=== PATIENT | female | born 1995 | race Hispanic/Latino ===

== ENCOUNTER 2018-11-05 11:49 | Emergency (ER) | payer OTHER, MEDICAID ==
[~2018-11-05 11:49] MED LIST: PREN-196 PO
[2018-11-05 12:34] LABS: BASOPHILS % (AUTO) 0.1 % (0.0-5.0); HEMATOCRIT 38.1 % (36-48); LYMPHOCYTES % (AUTO) 10.6 % (21.0-51.0); MEAN CORPUSCULAR HEMOGLOBIN 28.3 pg (27.0-33.0); MEAN CORPUSCULAR HGB CONC 33.2 g/dL (32.0-36.0); MEAN CORPUSCULAR VOLUME 85.4 fL (79-99); MONOCYTES % (AUTO) 6.2 % (3.0-13.0); NEUTROPHILS % (AUTO) 82.1 % (40.0-77.0); PLATELET COUNT (AUTO) 262 K/uL (130-400); RED BLOOD CELL COUNT(AUTO) 4.47 MIL/uL (4.00-5.50); RED CELL DISTRIBUTION WIDTH 16.3 % (11.0-15.5); WHITE BLOOD COUNT (AUTO) 11.2 K/uL (4.8-10.8)
[2018-11-05 12:37] LABS: APPEARANCE,URINE Cloudy (CLEAR); BILIRUBIN,URINE Negative (NEGATIVE); COLOR,URINE Yellow (YELLOW); GLUCOSE, URINE (UA) Negative (NEGATIVE); KETONES,URINE Trace mg/dL (NEGATIVE); LEUKOCYTE ESTERASE ,URINE Moderate (NEGATIVE); NITRATE,URINE Negative (NEGATIVE); OCCULT BLOOD,URINE Negative (NEGATIVE); PH,URINE 8.5 (5.0-8.0); PROTEIN,URINE POS 1+ (NEGATIVE)
[2018-11-05 12:40] LABS: CREATININE 0.7 mg/dL (0.5-1.5); POTASSIUM 4.1 mmol/L (3.5-5.1)
[2018-11-05 12:51] LABS: BACTERIA,URINE Few /HPF (None Seen); MUCUS,URINE Many LPF (None Seen); RBC,URINE None Seen /HPF (0-1); WBC,URINE 0-1 /HPF (0-1)
[2018-11-05 12:52] LABS: SQUAMOUS EPITHELIAL CELL,UR Moderate /HPF (0-2)
[2018-11-05] MEDS ORDERED: TETANUS/DIPHTHERIA TOXOID [ADULT] 0.5 ML VIAL IM ONE (14:19)
[2018-11-05] MEDS ORDERED: OCTYL 2-CYANOACRYLATE 1 EACH TP ONE (14:20)
== END 2018-11-05 15:41 | disposition home or self-care (01) ==
LOC: EDH 11:49
DX: O9A.211 Injury, poisoning and certain other consequences of external causes complicating pregnancy, first trimester (principal); S01.111A Laceration without foreign body of right eyelid and periocular area, initial encounter; Z98.890 Other specified postprocedural states; Z3A.08 8 weeks gestation of pregnancy; W18.39XA Other fall on same level, initial encounter; Y93.89 Activity, other specified; Y92.098 Other place in other non-institutional residence as the place of occurrence of the external cause; Y99.8 Other external cause status
CPT/HCPCS: 12011; 36415; 80048; 81001; 82550; 84484; 84702; 85025; 90471; 90714; 93005

== ENCOUNTER 2019-03-28 12:01 | Observation (INO) | payer OTHER, MEDICAID ==
[2019-03-28 12:55] LABS: APPEARANCE,URINE Clear (CLEAR); BILIRUBIN,URINE Negative (NEGATIVE); COLOR,URINE Yellow (YELLOW); GLUCOSE, URINE (UA) Negative (NEGATIVE); KETONES,URINE 15 mg/dL (NEGATIVE); LEUKOCYTE ESTERASE ,URINE Large (NEGATIVE); NITRATE,URINE Negative (NEGATIVE); OCCULT BLOOD,URINE Negative (NEGATIVE); PH,URINE 7.5 (5.0-8.0); PROTEIN,URINE Negative (NEGATIVE); UROBILINOGEN,URINE 0.2 mg/dL (0.2-1.0)
[2019-03-28 13:00] LABS: BACTERIA,URINE Rare /HPF (None Seen); RBC,URINE 0-1 /HPF (0-1); SQUAMOUS EPITHELIAL CELL,UR Moderate /HPF (0-2)
[2019-03-28 13:19] LABS: MEAN CORPUSCULAR HEMOGLOBIN 27.7 pg (27.0-33.0); MEAN CORPUSCULAR HGB CONC 33.4 g/dL (32.0-36.0); MEAN CORPUSCULAR VOLUME 83.1 fL (79-99); NUCLEATED RED BLOOD CELLS 0.1 % (0.0-0.19); PLATELET COUNT (AUTO) 205 K/uL (130-400); RED BLOOD CELL COUNT(AUTO) 3.73 MIL/uL (4.00-5.50); RED CELL DISTRIBUTION WIDTH 15.3 % (11.0-15.5); WHITE BLOOD COUNT (AUTO) 10.4 K/uL (4.8-10.8)
== END 2019-03-28 15:30 | disposition home or self-care (01) ==
LOC: EDH 12:01 → LDH 12:19
PROVIDERS: ADMIT Obstetrics & Gynecology; ATTEND Obstetrics & Gynecology
DX: O26.893 Other specified pregnancy related conditions, third trimester (principal); R42 Dizziness and giddiness; R19.7 Diarrhea, unspecified; R53.1 Weakness; Z3A.29 29 weeks gestation of pregnancy
CPT/HCPCS: 36415; 81001; 85027; 99284; G0378 ×3; J7120; 96360

== ENCOUNTER 2019-04-13 13:56 | Observation (INO) | payer OTHER, MEDICAID ==
[~2019-04-13] VITALS: Ht 144.8 cm; Wt 57.6 kg
[2019-04-13 14:40] LABS: APPEARANCE,URINE SL CLOUDY (CLEAR); BILIRUBIN,URINE NEGATIVE (NEGATIVE); COLOR,URINE YELLOW (YELLOW); GLUCOSE, URINE (UA) NEGATIVE (NEGATIVE); KETONES,URINE NEGATIVE (NEGATIVE); LEUKOCYTE ESTERASE ,URINE SMALL (NEGATIVE); NITRATE,URINE NEGATIVE (NEGATIVE); OCCULT BLOOD,URINE NEGATIVE (NEGATIVE); PH,URINE 7.5 (5.0-8.0); PROTEIN,URINE NEGATIVE (NEGATIVE); UROBILINOGEN,URINE 0.2 mg/dL (0.2-1.0)
[2019-04-13 15:05] LABS: AMORPHOUS SEDIMENT,UR Few /LPF (None Seen); BACTERIA,URINE Few /HPF (None Seen); RBC,URINE 0-1 /HPF (0-1); WBC,URINE 0-1 /HPF (0-1)
[2019-04-13 15:06] LABS: SQUAMOUS EPITHELIAL CELL,UR Few /HPF (0-2); TRANSITIONAL EPI CELLS,URINE Rare /HPF (None Seen)
[2019-04-13] MEDS ORDERED: PANTOPRAZOLE SODIUM 40 MG TABLET.DR PO SCH (15:54)
== END 2019-04-13 17:00 | disposition home or self-care (01) ==
LOC: EDH 13:56 → LDH 14:19
PROVIDERS: ADMIT Obstetrics & Gynecology; ATTEND Obstetrics & Gynecology
DX: O26.893 Other specified pregnancy related conditions, third trimester (principal); R10.13 Epigastric pain; Z3A.30 30 weeks gestation of pregnancy
CPT/HCPCS: 81001; 99284; G0378 ×3

== ENCOUNTER 2019-06-05 11:00 | Inpatient (IN) | payer OTHER, MEDICAID ==
[~2019-06-05] VITALS: Ht 144.8 cm; Wt 60.3 kg
[2019-06-05 11:50] LABS: HEMATOCRIT 34.8 % (36-48); MEAN CORPUSCULAR HEMOGLOBIN 25.1 pg (27.0-33.0); MEAN CORPUSCULAR HGB CONC 32.1 g/dL (32.0-36.0); MEAN CORPUSCULAR VOLUME 78.2 fL (79-99); PLATELET COUNT (AUTO) 226 K/uL (130-400); RED BLOOD CELL COUNT(AUTO) 4.46 MIL/uL (4.00-5.50); RED CELL DISTRIBUTION WIDTH 17.9 % (11.0-15.5); WHITE BLOOD COUNT (AUTO) 7.8 K/uL (4.8-10.8)
[2019-06-06 08:12] LABS: HEPATITIS Bs ANTIGEN SCREEN P Negative (Negative)
[2019-06-07] MEDS ORDERED: LACTATED RINGERS 1000ML 1,000 ML IV ONE (09:04)
[2019-06-07] MEDS ORDERED: CEFAZOLIN SODIUM 1 GM VIAL ONE (09:04)
[2019-06-07] MEDS ORDERED: CEFAZOLIN SODIUM 1 GM VIAL IVP PRN (10:15)
[2019-06-07] MEDS ORDERED: LACTATED RINGERS 1000ML 1,000 ML IV SCH (10:15)
[2019-06-07] MEDS ORDERED: FENTANYL CITRATE PF 50 MCG/1 ML 2ML VIAL ONE (11:37)
[2019-06-07] MEDS ORDERED: DURAMORPH PF1 MG/ML 10ML AMP IV ONE (11:37)
[2019-06-07] MEDS ORDERED: CITRIC ACID/SODIUM CITRATE 30 ML UDCUP ONE (11:40)
[2019-06-07] MEDS ORDERED: CALDOLOR 800MG+NS 250ML 250 ML IV ONE (11:41)
[2019-06-07] MEDS ORDERED: CEFAZOLIN SODIUM 1 GM VIAL IVP ONE (11:45)
[2019-06-07] MEDS ORDERED: OXYTOCIN 10 UNIT/1ML 10ML VIAL ONE (12:10)
[2019-06-07] MEDS ORDERED: PHENYLEPHRINE HCL 10 MG/ML 1ML VIAL IV ONE (12:10)
[2019-06-07] MEDS ORDERED: ONDANSETRON HCL 4 MG/2 ML VIAL ONE (12:11)
[2019-06-07] MEDS ORDERED: MEPERIDINE-PF 75 MG/ML SYG IM PRN (13:00)
[2019-06-07] MEDS ORDERED: OXYTOCIN-LR 20 UNITS/1000 ML 1,000 ML IV PRN (13:00)
[2019-06-07] MEDS ORDERED: PROMETHAZINE HCL 25 MG/ML 1ML AMPULE IM PRN (13:00)
[2019-06-07] MEDS ORDERED: SODIUM CHLORIDE 0.9% 10 ML VIAL IVP PRN (13:00)
[2019-06-07 14:49] VITALS: BP 94/61
[2019-06-07] MEDS ORDERED: EPHEDRINE SULFATE 50 MG/ML AMPULE IVP PRN (15:45)
[2019-06-07] MEDS ORDERED: ONDANSETRON HCL 4 MG/2 ML VIAL IVP PRN (15:45)
[2019-06-07] MEDS ORDERED: DiphenhydrAMINE HCL 50 MG/ML VIAL IVP PRN (15:45)
[2019-06-07] MEDS ORDERED: NALOXONE HCL 0.4 MG/1 ML ML IVP PRN ×2 (15:45)
[2019-06-07] MEDS ORDERED: CALDOLOR 800MG+NS 250ML 250 ML IV PRN (15:45)
[2019-06-07 16:13] VITALS: BP 100/61
[2019-06-07 19:25] VITALS: BP 130/73
[2019-06-07] MEDS: DEXTROSE 5 %-0.45 % NACL 1,000 ML IV PRN (21:00)
[2019-06-07 23:22] VITALS: BP 98/56
[2019-06-08 03:28] VITALS: BP 96/57
[2019-06-08] MEDS: DEXTROSE 5 %-0.45 % NACL 1,000 ML IV PRN (04:13)
--- NOTE | 2019-06-08 06:30 | NUR ---
CERDA CATHETER DISCONTINUED, NEREIDA CARE DONE. PT. INST TO CALL FOR ASSIST BEFORE GETTING OUT OF BED, VERBALIZED UNDERSTANDING. Addendum: 06/08/19 at 0639 by JAYSHREE MURPHY RN RN Amended: Links added.
[2019-06-08 06:41] LABS: HEMATOCRIT 30.6 % (36-48); MEAN CORPUSCULAR HEMOGLOBIN 25.2 pg (27.0-33.0); MEAN CORPUSCULAR HGB CONC 31.5 g/dL (32.0-36.0); MEAN CORPUSCULAR VOLUME 79.9 fL (79-99); PLATELET COUNT (AUTO) 185 K/uL (130-400); RED BLOOD CELL COUNT(AUTO) 3.83 MIL/uL (4.00-5.50); RED CELL DISTRIBUTION WIDTH 18.1 % (11.0-15.5); WHITE BLOOD COUNT (AUTO) 9.9 K/uL (4.8-10.8)
[2019-06-08 07:23] VITALS: BP 101/69
--- NOTE | 2019-06-08 07:54 | NUR ---
DRESSING DRESSING LEFT INTACT. OOZING NOTED BEYOND PREVIOUSLY MARKED AREA. Addendum: 06/08/19 at 0942 by JUSTINO ALAS LVN LVN AREA MARKED WHERE OOZING IS NOTED.
[2019-06-08] MEDS ORDERED: ACETAMINOPHEN EXTRA STRENGTH 500 MG TABLET PO PRN (09:00)
[2019-06-08] MEDS ORDERED: BISACODYL 10 MG SUPP.RECT RC PRN (09:00)
[2019-06-08] MEDS ORDERED: ACETAMINOPHEN-CODEINE 300/30MG TAB PO PRN (09:00)
[2019-06-08] MEDS ORDERED: LANOLIN 30GM OINTMENT TP PRN (09:00)
--- NOTE | 2019-06-08 09:00 | NUR ---
SAFETY PATIENT CALLED NEEDING TO GO TO RESTROOM. ASSISTED PATIENT TO UP TO RESTROOM PATIENT REQUESTED PRIVACY. ADVISED PATIENT TO PULL ON EMERGENCY CORDS IF NEEDED.
[2019-06-08] MEDS: SIMETHICONE 80 MG TAB.CHEW PO PRN ×4 (09:22→20:44)
[2019-06-08] MEDS: DOCUSATE SODIUM 100 MG CAP PO SCH ×2 (09:22→20:44)
--- NOTE | 2019-06-08 09:42 | NUR ---
ACTIVITY PATIENT AMBULATING IN HALLWAY. NO COMPLAINTS OF PAIN OR DIZZINESS REPORTED.
--- NOTE | 2019-06-08 10:10 | NUR ---
MD DR. WOOTEN ROUNDING ON PATIENT. DRESSING REMOVED. NO OOZING NOTED.
--- NOTE | 2019-06-08 11:00 | NUR ---
DRESSING STERISTRIPS APPLIED TO RIGHT SIDE OF INCISION WITH 4X4 APPLIED OVER PER DR. WOOTEN
[2019-06-08 11:11] VITALS: BP 100/66
[2019-06-08] MEDS: DIPH,PERTUSS(ACELL),TET VAC/PF 0.5 ML VIAL IM SCH ×2 (12:43→20:52)
[2019-06-08 16:32] VITALS: BP 101/66
[2019-06-08] MEDS: IBUPROFEN 600 MG TABLET PO PRN (19:24)
[2019-06-08 19:30] VITALS: BP 120/69
[2019-06-08 23:42] VITALS: BP 99/61
[2019-06-09 03:58] VITALS: BP 102/60
--- NOTE | 2019-06-09 04:30 | NUR ---
PT GIVEN DUCOLAX SUPP RECTALLY AT 0411, UP IN BATHROOM AND PASSING GAS.
[2019-06-09 07:34] VITALS: BP 116/71
[2019-06-09] MEDS: DOCUSATE SODIUM 100 MG CAP PO SCH (10:07)
[2019-06-09] MEDS: IBUPROFEN 600 MG TABLET PO PRN (10:08)
[2019-06-09] MEDS: SIMETHICONE 80 MG TAB.CHEW PO PRN (10:08)
--- NOTE | 2019-06-09 11:15 | NUR ---
DR. WOOTEN CALLED AND ORDER OBTAINED FOR DISCHARGE. PATIENT REMAINS STABLE AND DENIES PAIN AT THIS TIME. SCRIPT IN CHART FOR PAIN MANAGEMENT AFTER DISCHARGE.
[2019-06-09 11:56] VITALS: BP 122/72
--- NOTE | 2019-06-09 12:25 | NUR ---
PATIENT WAS DISCHARGED TO HER MOTHER ION STABLE CONDITION. DENIES PAIN AT THIS TIME. PT TO FOLLOW UP IN ONE WEEK WITH DR. WOOTEN.
== END 2019-06-09 12:25 | disposition home or self-care (01) | DRG 785 ==
LOC: EDSTATUS 11:00 → LDH 06-07 08:44 → WSH 06-07 14:40
PROVIDERS: ADMIT Obstetrics & Gynecology; ATTEND Obstetrics & Gynecology
PROC: 10D00Z1 Extraction of Products of Conception, Low, Open Approach (ICD-10-PCS; 2019-06-07)
PROC: 3E0234Z Introduction of Serum, Toxoid and Vaccine into Muscle, Percutaneous Approach (ICD-10-PCS; 2019-06-07)
PROC: 0UB70ZZ Excision of Bilateral Fallopian Tubes, Open Approach (ICD-10-PCS; principal; 2019-06-07 12:00)
DX: O34.211 Maternal care for low transverse scar from previous cesarean delivery (principal); O99.824 Streptococcus B carrier state complicating childbirth; Z30.2 Encounter for sterilization; Z37.0 Single live birth; Z23 Encounter for immunization; Z3A.39 39 weeks gestation of pregnancy
CPT/HCPCS: 36415; 59510; 85027; 86592; 86850; 86900; 86901; 87340; 88302; 90715; A4344; A4450; A4606; G0378; J0690; J1741; J2274; J2370; J2405; J2590; J3010; J7120

== ENCOUNTER → 2022-10-13 | Outpatient (CLI) | payer OTHER ==
[2022-10-13 12:37] LABS: BASOPHILS % (AUTO) 0.2 % (0.0-5.0); EOSINOPHILS % (AUTO) 3.3 % (0.0-8.0); HEMATOCRIT 39.4 % (36-48); LYMPHOCYTES % (AUTO) 35.2 % (21.0-51.0); MEAN CORPUSCULAR HEMOGLOBIN 29.5 pg (27.0-33.0); MEAN CORPUSCULAR HGB CONC 34.3 g/dL (32.0-36.0); MONOCYTES % (AUTO) 5.6 % (3.0-13.0); NEUTROPHILS % (AUTO) 55.5 % (40.0-77.0); PLATELET COUNT (AUTO) 304 K/uL (130-400); RED BLOOD CELL COUNT(AUTO) 4.58 MIL/uL (4.00-5.50); WHITE BLOOD COUNT (AUTO) 8.4 K/uL (4.8-10.8)
[2022-10-13 13:31] LABS: ALANINE AMINOTRANSFERASE 15 U/L (12-78); ALBUMIN 3.8 g/dL (3.5-5.0); ASPARTATE AMINOTRANSFERASE 17 U/L (10-37); CARBON DIOXIDE 27 mmol/L (21-32); CHLORIDE 103 mmol/L (101-111); CREATININE 0.9 mg/dL (0.5-1.5); GLOMERULAR FILTR. RATE CALC 79 mL/min (>60); GLUCOSE,RANDOM 93 mg/dL (70-105); POTASSIUM 3.5 mmol/L (3.5-5.1); SODIUM SERUM 133 mmol/L (136-145); THYROID STIMULATING HORMONE 1.37 uIU/mL (0.36-3.74); TOTAL PROTEIN, SERUM 7.6 g/dL (6.0-8.3); UREA NITROGEN, BLOOD 13 mg/dL (7-18)
[2022-10-13 13:43] LABS: CRP QUANTITATIVE < 2.00 mg/L (0.00-9.0)
[2022-10-13 14:24] LABS: ERYTHROCYTE SEDIMENTATION RATE 12 MM/HR (0-20)
== END | disposition home or self-care (01) ==
LOC: LAB 11:55
PROVIDERS: ATTEND Internal Medicine
DX: R53.83 Other fatigue (principal); R41.840 Attention and concentration deficit
CPT/HCPCS: 36415; 80053; 84443; 85025; 85651; 86038; 86140; 86215; 86235

== ENCOUNTER → 2023-12-21 | Outpatient (CLI) | payer OTHER ==
[2023-12-21 11:28] LABS: BASOPHILS # (AUTO) 0.02 K/uL (0.00-0.20); BASOPHILS % (AUTO) 0.3 % (0.0-5.0); EOSINOPHILS # (AUTO) 0.19 K/uL (0.00-0.70); EOSINOPHILS % (AUTO) 2.8 % (0.0-8.0); HEMATOCRIT 41.2 % (36-48); IMMATURE GRANULOCYTE ABSOLUTE 0.03 K/uL (0-1); LYMPHOCYTES # (AUTO) 2.1 K/uL (1.0-4.8); LYMPHOCYTES % (AUTO) 30.8 % (21.0-51.0); MEAN CORPUSCULAR HEMOGLOBIN 29.8 pg (27.0-33.0); MEAN CORPUSCULAR HGB CONC 33.3 g/dL (32.0-36.0); MEAN CORPUSCULAR VOLUME 89.8 fL (79-99); MONOCYTES # (AUTO) 0.5 K/uL (0.1-1.0); MONOCYTES % (AUTO) 7.2 % (3.0-13.0); NEUTROPHILS # (AUTO) 3.9 K/uL (1.8-7.7); NEUTROPHILS % (AUTO) 58.5 % (40.0-77.0); PLATELET COUNT (AUTO) 332 K/uL (130-400); RED BLOOD CELL COUNT(AUTO) 4.59 MIL/uL (4.00-5.50); RED CELL DISTRIBUTION WIDTH 13.2 % (11.0-15.5); WHITE BLOOD COUNT (AUTO) 6.7 K/uL (4.8-10.8)
[2023-12-21 13:15] LABS: ALBUMIN 3.7 g/dL (3.5-5.0); BILIRUBIN,DIRECT 0.1 mg/dL (0.0-0.3); BILIRUBIN,TOTAL 0.3 mg/dL (0.2-1.0); CREATININE 0.8 mg/dL (0.5-1.5); THYROID STIMULATING HORMONE 0.7 uIU/mL (0.36-3.74); TOTAL PROTEIN, SERUM 7.3 g/dL (6.0-8.3)
== END | disposition home or self-care (01) ==
LOC: LAB 10:30
PROVIDERS: ATTEND Internal Medicine
DX: Z13.1 Encounter for screening for diabetes mellitus (principal); Z13.220 Encounter for screening for lipoid disorders; F90.9 Attention-deficit hyperactivity disorder, unspecified type; R53.83 Other fatigue
CPT/HCPCS: 36415; 80053; 80061; 80076; 80158; 82248; 82306; 82607; 84443; 85025

== ENCOUNTER → 2024-10-26 | Outpatient (CLI) | payer OTHER ==
[2024-10-26 10:00] LABS: HEMOGLOBIN A1C 5.6 % (4.0-6.0)
[2024-10-26 10:01] LABS: BASOPHILS # (AUTO) 0.03 K/uL (0.00-0.20); BASOPHILS % (AUTO) 0.4 % (0.0-5.0); EOSINOPHILS # (AUTO) 0.38 K/uL (0.00-0.70); EOSINOPHILS % (AUTO) 5.1 % (0.0-8.0); HEMATOCRIT 41.4 % (36-48); IMMATURE GRANULOCYTE ABSOLUTE 0.03 K/uL (0-1); LYMPHOCYTES # (AUTO) 2.1 K/uL (1.0-4.8); MEAN CORPUSCULAR HEMOGLOBIN 29.6 pg (27.0-33.0); MEAN CORPUSCULAR HGB CONC 32.1 g/dL (32.0-36.0); MONOCYTES # (AUTO) 0.4 K/uL (0.1-1.0); MONOCYTES % (AUTO) 5.7 % (3.0-13.0); NEUTROPHILS # (AUTO) 4.4 K/uL (1.8-7.7); NEUTROPHILS % (AUTO) 59.4 % (40.0-77.0); PLATELET COUNT (AUTO) 344 K/uL (130-400); RED CELL DISTRIBUTION WIDTH 13.2 % (11.0-15.5); WHITE BLOOD COUNT (AUTO) 7.4 K/uL (4.8-10.8)
[2024-10-26 10:36] LABS: ALBUMIN 3.8 g/dL (3.5-5.0); BILIRUBIN,DIRECT 0.1 mg/dL (0.0-0.3); BILIRUBIN,TOTAL 0.2 mg/dL (0.2-1.0); CREATININE 0.8 mg/dL (0.5-1.0); POTASSIUM 4.1 mmol/L (3.5-5.1); THYROID STIMULATING HORMONE 1.58 uIU/mL (0.36-3.74); TOTAL PROTEIN, SERUM 7.1 g/dL (6.0-8.3)
[2024-10-26 10:49] LABS: MAGNESIUM 1.9 mg/dL (1.80-2.40)
== END | disposition home or self-care (01) ==
LOC: LAB 08:48
PROVIDERS: ATTEND Internal Medicine
DX: Z13.220 Encounter for screening for lipoid disorders (principal); Z13.29 Encounter for screening for other suspected endocrine disorder; Z13.1 Encounter for screening for diabetes mellitus; J06.9 Acute upper respiratory infection, unspecified; R53.83 Other fatigue
CPT/HCPCS: 36415; 80053; 80061; 80076; 82043; 82306; 82570; 82607; 83036; 83735; 84443; 85025

== ENCOUNTER → 2025-07-20 | Outpatient (CLI) | payer OTHER ==
--- NOTE | 2025-07-20 11:09 | HMCIMG ---
SHOULDER COMP 2+VWS LT REASON: SHOULDER PAIN, LEFT TECHNIQUE: 2 views were obtained. FINDINGS: There is no evidence of fracture or dislocation. There is no joint effusion. The soft tissues appear unremarkable. There is no evidence of a radiopaque foreign body. The left AC joint appears to be normal. IMPRESSION: No acute findings.
--- NOTE | 2025-07-20 11:13 | HMCIMG ---
ELBOW 2VWS LT REASON: ELBOW PAIN, LEFT TECHNIQUE: 2 views were obtained. FINDINGS: There is no evidence of fracture or dislocation. There is no joint effusion. The soft tissues appear unremarkable. There is no evidence of a radiopaque foreign body. IMPRESSION: No acute findings.
== END | disposition home or self-care (01) ==
LOC: RAH 10:08
PROVIDERS: ATTEND Internal Medicine
DX: M77.12 Lateral epicondylitis, left elbow (principal); M25.512 Pain in left shoulder; M25.522 Pain in left elbow
CPT/HCPCS: 73030; 73070

== ENCOUNTER 2025-10-25 06:14 | Emergency (ER) | payer OTHER ==
[~2025-10-25] VITALS: Ht 144.8 cm; Wt 45.8 kg
[2025-10-25] MEDS: 0.9%NACL 1000ML 1,000 ML IV ONE (06:43)
--- NOTE | 2025-10-25 06:43 | ERN ---
ED Note History of Present Illness Stated Complaint: C/O "FEELING LIKE FAINTING" DIZZINESS, LOW B/P Chief Complaint: Dizzy/Light Headed Time Seen by MD: 06:36 Dictation: This is a 30-year-old female who presented to the emergency room complaining that she is feeling lightheaded and dizzy and running low blood pressure which started last night apparently she felt sick after she ate dinner and started having loose watery stools. Stated that she ate a hamburger but did could not finish it. No other family members have eaten the same food. No passing out although she feels weak. No nausea vomitings diarrhea hematemesis or melena. No history of any dysuria hematuria. No fever chills or rigors. No palpitations chest pain. No ear drainage, hearing loss or tinnitus. Temperature 96.4 pulse 93 respirations 20 blood pressure 100/61 with a pulse oximetry of 100% on room air Does give a history of anemia chronically Allergies: Coded Allergies: No Known Drug Allergies (Unverified Allergy, Unknown, 04/17/16) Home Meds Reported Medications Vit No.124/Iron/FA ( Vitamin Tablet) 1 Each Tablet, 1 EACH PO DAILY, TAB 04/19/16 Past Medical History Past Medical History: Anemia Surgical History: Family History: Negative Social History: Negative LMP: Oct 25, 2025 RN Note Reviewed/Agreed w/PFSH: Yes Review of System Dictation Constitutional: Negative for fever,chills, and weight loss Eyes: Negative for injury, pain,redness, and discharge ENT: Negative for injury,pain or swelling Cardiovascular: Negative for chest pain, palpitations, and edema positive for lightheadedness and dizziness, positive for low blood pressure Respiratory: Negative for shortness of breath, cough, and wheezing, Abdomen/GI: Negative for abdominal pain, nausea, vomiting, diarrhea, and constipation Back: Negative for injury and pain : Negative for injury, bleeding and discharge MS/Extremity: Negative for injury and deformity Skin: Negative for rash, and discoloration Neuro: Negative for headache, weakness, numbness, tingling, and seizure Psych: Negative for suicide ideation, homicidal ideation, and hallucinations Initial Vital Sign VS Vital Signs Date Time Temp Pulse Resp B/P (MAP) Pulse Ox O2 Delivery O2 Flow Rate FiO2 10/25/25 06:18 96.4 93 20 100/61 100 Room Air 10/25/25 06:35 0 21 Physical Exam Dictation General: awake, alert, NAD thin female Head/Face: Normocephalic, atraumatic Eyes: PERRL, EOMI, vision at baseline ENT: oral cavity clear, TMs clear, no signs of infection Neck: Trachea midline, supple, no nuchal rigidity Cardiovascular: RRR, normal S1/S2, No MRGs, no JVD Respiratory: CTAB, no respiratory distress, No rales or wheezes Abdomen: Soft, non-tender, non-distended, normal bowel sounds, no guarding or rebound. Skin: Warm, dry, normal turgor, no rash MS/Extremity: Pulses equal, no cyanosis, neurovascular intact, FROM Neuro: COAx4, GCS 15, strength 5/5, CN 2-12 intact, normal cerebellar exam, normal gait, Psych: Normal behavior, mood, and affect normal Extremities-trace edema without any palpable cords, Homans sign is negative Results (Laboratory/Radiology) Laboratory/Radiology Laboratory Tests Test 10/25/25 06:33 White Blood Count 11.4 K/uL (4.8-10.8) H Red Blood Count 4.45 MIL/uL (4.00-5.50) Hemoglobin 13.4 g/dL (12.0-16.0) Hematocrit 40.4 % (36-48) Mean Corpuscular Volume 90.8 fL (79-99) Mean Corpuscular Hemoglobin 30.1 pg (27.0-33.0) Mean Corpuscular Hemoglobin Concent 33.2 g/dL (32.0-36.0) Red Cell Distribution Width 12.9 % (11.0-15.5) Platelet Count 289 K/uL (130-400) Mean Platelet Volume 9.7 fL (7.5-10.5) Nucleated Red Blood Cells 0.0 % (0.0-0.19) Sodium Level 139 mmol/L (136-145) Potassium Level 4.0 mmol/L (3.5-5.1) Chloride Level 104 mmol/L (101-111) Carbon Dioxide Level 26 mmol/L (21-32) Blood Urea Nitrogen 16 mg/dL (7-18) Creatinine 0.8 mg/dL (0.5-1.0) Glomerular Filtration Rate Calc 101 mL/min (>90) Random Glucose 116 mg/dL (70-105) H Total Calcium 8.5 mg/dL (8.5-10.1) Serum Test, Qualitative NEGATIVE (NEGATIVE) Labs Reviewed?: Yes ED Course ED Course Orders Procedure Category Date Status Time Cbc Without LAB 10/25/25 Complete Differential 06:35 Basic Metabolic Panel LAB 10/25/25 Complete 06:35 Testing, LAB 10/25/25 Complete Serum Hcg 06:35 0.9%Nacl 1000ml (Ns PHA 10/25/25 Complete 1000ml) 07:00 Urinalysis Profile LAB 10/25/25 Logged 06:44 Ketorolac PHA 10/25/25 In Process Tromethamine 15mg/Ml 07:30 Current Medications Medications (Trade) Dose Ordered Sig/Reina Route PRN Reason Start Time Stop Time Status Last Admin Dose Admin Ketorolac Tromethamine (toRADol) 15 mg ONCE ONCE IV 10/25/25 07:30 10/25/25 07:31 Sodium Chloride 1,000 ml @ 0 mls/hr ONCE ONCE IV 10/25/25 07:00 10/25/25 07:01 DC 10/25/25 06:43 Vital Signs Date Time Temp Pulse Resp B/P (MAP) Pulse Ox O2 Delivery O2 Flow Rate FiO2 10/25/25 06:35 98.8 75 18 112/69 98 Room Air* 0 21 10/25/25 06:18 96.4 93 20 100/61 100 Room Air Medical Decision Making MDM Differential diagnosis- Benign positional vertigo, labyrinthitis, Meniere's disease, vertebrobasilar insufficiency, aortic stenosis, arrhythmia, volume depletion, anemia, gastroenteritis This is a 30-year-old female who presented to the emergency room complaining that she is feeling lightheaded and dizzy and running low blood pressure which started last night apparently she felt sick after she ate dinner and started having loose watery stools. Stated that she ate a hamburger but did could not finish it. No other family members have eaten the same food. No passing out although she feels weak. No nausea vomitings diarrhea hematemesis or melena. No history of any dysuria hematuria. No fever chills or rigors. No palpitations chest pain. No ear drainage, hearing loss or tinnitus. Temperature 96.4 pulse 93 respirations 20 blood pressure 100/61 with a pulse oximetry of 100% on room air Does give a history of anemia chronically Labs are pending 7:15 a.m. CBC is with a normal limits BNP 7 is with a normal limits urine test is negative. I updated the patient and her brother that this may simply be a gastroenteritis/food poisoning and dehydration. After a trial of fluids we will discharge her to home to follow up with her primary care physician. He had we will be transferred to oncoming physician at shift change at 7:00 a.m. Problem List Problem List: (1) Gastroenteritis (2) Volume depletion (3) Dizziness (4) Anemia DX & DISP Disposition: Discharge Departure Impression: Primary Impression: Gastroenteritis Additional Impressions: Volume depletion, Dizziness, Anemia Condition: Stable Additional Instructions: Patient and the caregiver have been informed of all the diagnostic tests and the imaging conducted during the today's visit to the emergency room and has verbalized understanding of the results I have personally reviewed and interpreted all diagnostic exams performed here in the ER today as well as the vital signs documented by the nursing staff. The patient is now being discharged to home and should follow up with the primary care physician or the specialist as directed by the ER staff. 1 schedule a follow-up appointment; call your primary care physician's office on the next business day to set up a follow-up appointment. 2. Monitor symptoms; if your symptoms worsen return to the emergency room imme diately. 3. Return to school/work; you may return to work or school in 2 days or as directed by your primary care physician. 4. Manage pain and fever; take [id number] Tylenol or Advil for pain or fever if there are no contraindications follow the recommended dosage instructions. 5. Stay well hydrated; drink plenty of oral fluids to stay hydrated. 6. Take prescribed medications; take any medications prescribed in the emergency room as directed bring them with you to your primary care physician visit for possible adjustments. 7. Complete medication course; finish the entire course of medication as prescribed even if you start feeling better. Do not have any leftover medication unless instructed otherwise. 8. Follow up on culture results; if a urine culture and wound culture was ordered in the emergency room please follow-up with your primary care physician within 2-3 days to review the culture and sensitivity report for appropriate antibiotic therapy adjustments. 9. Resume home medications; you may resume taking your home medications unless instructed otherwise. Referrals: CARINA LIU MD (PCP) CJ CRAMER MD Oct 25, 2025 06:43
[2025-10-25 06:48] LABS: NUCLEATED RED BLOOD CELLS 0.0 % (0.0-0.19); PLATELET COUNT (AUTO) 289.0 K/uL (130-400); RED BLOOD CELL COUNT(AUTO) 4.45 MIL/uL (4.00-5.50); RED CELL DISTRIBUTION WIDTH 12.9 % (11.0-15.5); WHITE BLOOD COUNT (AUTO) 11.4 K/uL (4.8-10.8)
[2025-10-25 07:12] LABS: CREATININE 0.8 mg/dL (0.5-1.0); GLOMERULAR FILTR. RATE CALC 101.0 mL/min (>90); GLUCOSE,RANDOM 116.0 mg/dL (70-105); SODIUM SERUM 139.0 mmol/L (136-145); UREA NITROGEN, BLOOD 16.0 mg/dL (7-18)
[2025-10-25 08:05] VITALS: BP 94/61; PULSE 75; RESP 18; TEMP 98.4; O2SAT 100
== END 2025-10-25 08:07 | disposition home or self-care (01) ==
LOC: EDH 06:14
DX: K52.9 Noninfective gastroenteritis and colitis, unspecified (principal); E86.9 Volume depletion, unspecified; D64.9 Anemia, unspecified; R42 Dizziness and giddiness; Z98.890 Other specified postprocedural states
CPT/HCPCS: 99283; 96374; 96361; 80048; 84703; 85027; 36415; J1885; J7030